=== PATIENT | female | born 1955 | race Hispanic/Latino ===

== ENCOUNTER 2018-07-16 08:10 | Emergency (ER) | payer MEDICARE, MEDICAID ==
[2018-07-16 08:36] VITALS: BP 136/91
--- NOTE | 2018-07-16 08:58 | Emergency Department Report ---
Minor Respiratory - HPI Chief Complaint: Upper Respiratory Infection Stated Complaint: SINUS INFECTION Time Seen by Provider: 07/16/18 08:41 Duration: 5 Days Pain Location: Facial, Chest Severity: mild Minor Respiratory: Yes Rhinorrhea (pt feels sinus congestion without pain on palpation), Yes Able to Tolerate Fluids, Yes Cough (non productive), No Sore Throat, No Ear Pain, No Sick Contacts, No Hemoptysis, No Chest Pain, No Shortness of Breath, No Fever ED Review of Systems ROS: Stated complaint: SINUS INFECTION Other details as noted in HPI Comment: All other systems reviewed and negative ED Past Medical Hx - Past Medical History Hx Hypertension: Yes Hx Diabetes: Yes Hx GERD: Yes Hx Asthma: Yes Additional medical history: Schizophrenia - Surgical History Hx Appendectomy: Yes - Social History Smoking Status: Never Smoker Substance Use Type: None - Medications Home Medications: Home Medications Medication Instructions Recorded Confirmed Last Taken Type ALBUTEROL Inhaler (OR & NICU) 2 puff IH QID PRN #1 inhalation 07/16/18 Unknown Rx [ProAir HFA Inhaler] Azithromycin [Zithromax Z-ORIN] 250 mg PO DAILY #6 tablet 07/16/18 Unknown Rx Benzonatate [Tessalon Perles] 100 mg PO Q8HR #10 capsule 07/16/18 Unknown Rx Pantoprazole [Protonix TAB] 40 mg PO QDAY #30 tablet. 07/16/18 Unknown Rx amLODIPine [Norvasc] 10 mg PO DAILY #30 tab 07/16/18 Unknown Rx Minor Respiratory Exam - Exam General: Vital signs noted. No distress. Alert and acting appropriately. HEENT: Yes Moist Mucous Membranes, No Pharyngeal Erythema, No Pharyngeal Exudates, No Rhinorrhea, No Conjuctival Injection, No Frontal Tenderness, No Maxillary Tenderness Ear: Neither TM Bulge, Neither TM Erythema, Neither EAC Pain, Neither EAC Discharge Neck: Yes Supple, No Adenopathy Lungs: Yes Good Air Exchange, Yes Cough, No Wheezes, No Ronchi, No Stridor, No Labored Respirations, No Retractions, No Use of Accessory Muscles, No Other Abnormal Lung Sounds Heart: Yes Regular, No Murmur Abdomen: Yes Normal Bowel Sounds, No Tenderness, No Peritoneal Signs Skin: No Rash, No Edema Neurologic: Alert and oriented, no deficits. Musculoskeletal: Unremarkable. ED Course Vital Signs 07/16/18 08:33 Temperature 97.8 F Pulse Rate 103 H Respiratory 18 Rate Blood Pressure 136/91 O2 Sat by Pulse 98 Oximetry ED Medical Decision Making - Medical Decision Making Patient's O2 saturation and lung exam are within normal limits. Did not feels though chest x-ray or neb treatment is necessary at this time. Patient excluding and requesting a breathing treatment. Patient has prescription for albuterol embryo. She states she is not sure these medications are old. Prescription for albuterol be given. The [facility] has multiple doses left according to the meter. Patient has Flonase and her bag of medications but has not been taking it she's been instructed to start this medication for her sinus congestion. Patient started on Tessalon as well for cough. Because of the hip patient's history of diabetes and asthma and a duration of her symptoms patient was started on antibiotics. Critical care attestation.: If time is entered above; I have spent that time in minutes in the direct care of this critically ill patient, excluding procedure time. ED Disposition Clinical Impression: Upper respiratory infection Qualifiers: URI type: unspecified URI Qualified Code(s): J06.9 - Acute upper respiratory infection, unspecified Disposition: DC-01 TO HOME OR SELFCARE Is pt being admited?: No Does the pt Need Aspirin: No Condition: Stable Instructions: Upper Respiratory Infection (ED) Additional Instructions: Prescription for albuterol inhalers been given medication for albuterol has run out. Please continue to take embryo. Please take the Flonase spray in the mitchel Y box. Please use 2 sprays daily. Your other medications have been given as prescriptions. Referrals: PRIMARY CARE, [Primary Care Provider] - 3-5 Days Time of Disposition: 08:59
== END 2018-07-16 09:08 | disposition home or self-care (01) ==
LOC: ED 08:10
DX: J06.9 Acute upper respiratory infection, unspecified (principal); I10 Essential (primary) hypertension; E11.9 Type 2 diabetes mellitus without complications; K21.9 Gastro-esophageal reflux disease without esophagitis; J45.909 Unspecified asthma, uncomplicated; F20.9 Schizophrenia, unspecified
CPT/HCPCS: 99281

== ENCOUNTER 2020-03-01 12:46 | Emergency (ER) | payer MEDICARE, MEDICAID ==
[2020-03-01 14:37] LABS: Basophils % (Auto) 0.4 % (0.0-1.8); Eosinophils # (Auto) 0.1 K/mm3 (0.0-0.4); Eosinophils % (Auto) 0.8 % (0.0-4.3); Lymphocytes # (Auto) 1.8 K/mm3 (1.2-5.4); Lymphocytes % (Auto) 16.2 % (13.4-35.0); Mean Corpuscular HGB Conc 29 % (30-34); Monocytes # (Auto) 0.7 K/mm3 (0.0-0.8); Monocytes % (Auto) 6.8 % (0.0-7.3); Platelet Count 384 K/mm3 (140-440); Red Blood Count 4.46 M/mm3 (3.65-5.03); Red Cell Distribution Width 19.5 % (13.2-15.2)
--- NOTE | 2020-03-01 14:40 | Event Note ---
ED Screening Note Date of service: 03/01/20 Time: 14:36 ED Screening Note: Patient complains of recurrent falls for the past 3 days Admits to headache and feeling off balance States left arm pain This initial assessment/diagnostic orders/clinical plan/treatment(s) is/are subject to change based on patients health status, clinical progression and re- assessment by fellow clinical providers in the ED. Further treatment and workup at subsequent clinical providers discretion. Patient/guardian urged not to elope from the ED as their condition may be serious if not clinically assessed and managed. Initial orders include: CT head EKG Chest x-ray Labs
[2020-03-01 14:42] LABS: Hematocrit 27.4 % (30.3-42.9); Mean Corpuscular Volume 62 fl (79-97)
[2020-03-01 15:04] LABS: Alanine Aminotransferase 6 units/L (7-56); Albumin 3.8 g/dL (3.9-5); BUN/Creatinine Ratio 13; Blood Urea Nitrogen 13 mg/dL (7-17); Hemolysis Index 6
--- NOTE | 2020-03-01 15:17 | XRay Report ---
XR chest 1V ap INDICATION / CLINICAL INFORMATION: DIZZINESS/recurrent falls/PAIN AFTER FALL. COMPARISON: None available. FINDINGS: SUPPORT DEVICES: None. HEART / MEDIASTINUM: No significant abnormality. LUNGS / PLEURA: Lungs are clear. Costophrenic sulci are sharp. No pneumothorax. ADDITIONAL FINDINGS: No significant additional findings. IMPRESSION: 1. No acute findings. Signer Name: Isiah Cid MD Signed: 03/01/2020 3:12 PM Workstation Name: [id number]
--- NOTE | 2020-03-01 15:18 | XRay Report ---
XR humerus 2+V LT INDICATION / CLINICAL INFORMATION: Pain and bruising after fall. COMPARISON: None available. FINDINGS: No acute fracture. Normal alignment. Joint spaces are preserved. No destructive osseous lesion or s uspicious periosteal reaction. Impression: 1.No acute fracture. Signer Name: Isiah Cid MD Signed: 03/01/2020 3:13 PM Workstation Name: [id number]
--- NOTE | 2020-03-01 15:34 | Cat Scan Report ---
CT head/brain wo con INDICATION / CLINICAL INFORMATION: 64 years Female; recurrent falls, balance issues, headache. TECHNIQUE: Routine CT head without contrast. All CT scans at this location are performed using CT dos e reduction for ALARA by means of automated exposure control. COMPARISON: None. FINDINGS: BRAIN / INTRACRANIAL CONTENTS: There is mild cerebral white matter disease most consistent with micro vascular angiopathy. There is mild cerebral atrophy with associated prominence of the ventricular sys tem. There is hyperostosis from talus interna with associated beam hardening. However, there is no de finitive CT evidence of acute intracranial hemorrhage or significant mass effect. ORBITS: No significant abnormality of visualized orbits. SINUSES / MASTOIDS: There is focal opacification involving posterior right ethmoid sinus. CRANIOCERVICAL JUNCTION: No significant abnormality. ADDITIONAL FINDINGS: None. IMPRESSION: 1. There is mild microvascular angiopathy and cerebral atrophy without CT evidence of acute intracran ial hemorrhage. Signer Name: Peterson Flor MD Signed: 03/01/2020 3:30 PM Workstation Name: [id number]
[2020-03-01 22:57] LABS: Bilirubin,Urine NEG (Negative); Blood,Urine SM (Negative); Color,Urine Yellow (Yellow); Mucus,Urine FEW /HPF; Protein,Urine <15 mg/dL mg/dL (Negative); Urobilinogen,Urine < 2.0 mg/dL (<2.0)
[2020-03-01 23:00] LABS: Bacteria,Urine 3+ /HPF (Negative)
--- NOTE | 2020-03-01 23:12 | Emergency Department Report ---
ED General Adult HPI - General Chief complaint: Dizziness Stated complaint: UNSTEADY GAIT Time Seen by Provider: 03/01/20 14:35 Source: patient, EMS Mode of arrival: Stretcher Limitations: No Limitations - History of Present Illness Initial comments: CC: "I have not been walking too good." HPI: This is a 64-year-old female with history of asthma, diabetes mellitus, hypertension, paranoid schizophrenia ADHD who presents with difficulty with walking for the past 1-1/2 weeks. She stated that she bent over the toilet and fell. She has bruised to her left upper arm. She had a small cut on her lower chin. She denies trouble with speech. She denies paralysis. Denies numbness. She feels as if she needs an MRI. She has recently been evaluated by her PCP. Her PCP has referred her to a machine silver stripper. -: Gradual, week(s) (1.5 weeks) Severity scale (0 -10): 0 Consistency: constant Improves with: none Worsens with: none Associated Symptoms: headaches - Related Data Previous Rx's Medication Instructions Recorded Last Taken Type Albuterol Mdi (or & Nicu Only) 2 puff IH QID PRN #1 inhalation 07/16/18 Unknown Rx [ProAir HFA Inhaler] Azithromycin [Zithromax Z-ORIN] 250 mg PO DAILY #6 tablet 07/16/18 Unknown Rx Benzonatate [Tessalon Perles] 100 mg PO Q8HR #10 capsule 07/16/18 Unknown Rx Pantoprazole [Protonix TAB] 40 mg PO QDAY #30 tablet. 07/16/18 Unknown Rx amLODIPine [Norvasc] 10 mg PO DAILY #30 tab 07/16/18 Unknown Rx cephALEXin [Keflex] 500 mg PO Q8HR 7 Days #21 cap 03/01/20 Unknown Rx Allergies Allergy/AdvReac Type Severity Reaction Status Date / Time No Known Allergies Allergy Unverified 06/11/18 10:00 ED Review of Systems ROS: Stated complaint: UNSTEADY GAIT Other details as noted in HPI Comment: All other systems reviewed and negative Constitutional: denies: fever, malaise Respiratory: denies: cough Cardiovascular: denies: chest pain Gastrointestinal: denies: abdominal pain, nausea, vomiting Neurological: headache, confusion, abnormal gait. denies: numbness, paresthesias ED Past Medical Hx - Past Medical History Previous Medical History?: Yes Hx Hypertension: Yes Hx Diabetes: Yes Hx GERD: Yes Hx Asthma: Yes Additional medical history: Schizophrenia - Surgical History Past Surgical History?: Yes Hx Appendectomy: Yes - Family History Family history: CAD/AK - Social History Smoking Status: Never Smoker Substance Use Type: None - Medications Home Medications: Home Medications Medication Instructions Recorded Confirmed Last Taken Type Albuterol Mdi (or & Nicu Only) 2 puff IH QID PRN #1 inhalation 07/16/18 Unknown Rx [ProAir HFA Inhaler] Azithromycin [Zithromax Z-ORIN] 250 mg PO DAILY #6 tablet 07/16/18 Unknown Rx Benzonatate [Tessalon Perles] 100 mg PO Q8HR #10 capsule 07/16/18 Unknown Rx Pantoprazole [Protonix TAB] 40 mg PO QDAY #30 tablet. 07/16/18 Unknown Rx amLODIPine [Norvasc] 10 mg PO DAILY #30 tab 07/16/18 Unknown Rx cephALEXin [Keflex] 500 mg PO Q8HR 7 Days #21 cap 03/01/20 Unknown Rx ED Physical Exam - General Limitations: No Limitations General appearance: alert, in no apparent distress, other (Normal gait patient able to get out of stretcher without assistance. Ambulates without assistance. Steady normal gait.) - Head Head exam: Present: atraumatic, normocephalic - Eye Eye exam: Present: normal appearance - ENT ENT exam: Present: mucous membranes moist - Neck Neck exam: Present: normal inspection, full ROM - Respiratory Respiratory exam: Present: normal lung sounds bilaterally. Absent: respiratory distress, wheezes, rales, rhonchi - Cardiovascular Cardiovascular Exam: Present: regular rate, normal rhythm, normal heart sounds. Absent: systolic murmur, diastolic murmur, rubs, gallop - GI/Abdominal GI/Abdominal exam: Present: soft, normal bowel sounds. Absent: distended, tenderness, guarding, rebound - Extremities Exam Extremities exam: Present: normal inspection - Back Exam Back exam: Present: normal inspection - Neurological Exam Neurological exam: Present: alert, oriented X3 - Expanded Neurological Exam Expanded Patient oriented to: Present: person, place, time Speech: Present: fluid speech Cranial nerves: EOM's Intact: Normal Cerebellar function: Finger to Nose: Normal Upper motor neuron: Agus Neglect: Normal Sensory exam: Upper Extremity Light Touch: Normal Motor strength exam: RUE: 5, LUE: 5, RLE: 5, LLE: 5 Best Eye Response ([place]): (4) open spontaneously Best Motor Response (Nini): (6) obeys commands Best Verbal Response ([place]): (5) oriented Nini Total: 15 - Psychiatric Psychiatric exam: Present: normal affect, normal mood - Skin Skin exam: Present: warm, dry, intact, normal color. Absent: rash ED Course Vital Signs 03/01/20 03/01/20 12:51 22:28 Temperature 98.2 F 98.2 F Pulse Rate 120 H 98 H Respiratory 16 16 Rate Blood Pressure 124/86 Blood Pressure 161/83 [Right] O2 Sat by Pulse 96 100 Oximetry ED Medical Decision Making - Lab Data Result diagrams: 03/01/20 14:08 03/01/20 14:08 Laboratory Results - last 24 hr 03/01/20 03/01/20 03/01/20 14:08 14:08 Unknown WBC 11.0 RBC 4.46 Hgb 8.0 L Hct 27.4 L MCV 62 L MCH 18 L MCHC 29 L RDW 19.5 H Plt Count 384 Lymph % (Auto) 16.2 [place] % (Auto) 6.8 Eos % (Auto) 0.8 Baso % (Auto) 0.4 Lymph # 1.8 [place] # 0.7 Eos # 0.1 Baso # 0.0 Seg Neutrophils % 75.8 H Seg Neutrophils # 8.3 H Sodium 142 Potassium 4.5 Chloride 106.2 Carbon Dioxide 23 Anion Gap 17 BUN 13 Creatinine 1.0 Estimated GFR 56 BUN/Creatinine Ratio 13 Glucose 101 H Calcium 11.0 H Total Bilirubin < 0.20 AST 14 ALT 6 L Alkaline Phosphatase 104 Troponin T < 0.010 Total Protein 7.2 Albumin 3.8 L Albumin/Globulin Ratio 1.1 Urine Color Yellow Urine Turbidity Cloudy Urine pH 5.0 Ur Specific [place] 1.016 Urine Protein <15 mg/dl Urine Glucose (UA) Neg Urine Ketones Neg Urine Blood Sm Urine Nitrite Neg Urine Bilirubin Neg Urine Urobilinogen < 2.0 Ur Leukocyte Esterase Lg Urine WBC (Auto) 70.0 H Urine RBC (Auto) 38.0 U Epithel Cells (Auto) 2.0 Urine Bacteria (Auto) 3+ Urine Mucus Few - Medical Decision Making This is a 64-year-old female with a history of hypertension, diabetes mellitus, asthma This of hernia who presents with recurrent falls due to a feeling of being unsteady. She does "I do not know what is wrong with my legs". Patient has normal gait. She has normal neuro exam. No indication of CVA or significant spinal cord disease. I have referred her to neurologist. Work-up does reveal mild anemia as well as UTI. I prescribed cephalexin. Critical care attestation.: If time is entered above; I have spent that time in minutes in the direct care of this critically ill patient, excluding procedure time. ED Disposition Clinical Impression: Recurrent falls, Balance problem, UTI (urinary tract infection), Anemia Disposition: DC- TO HOME OR SELFCARE Is pt being admited?: No Does the pt Need Aspirin: No Condition: Stable Instructions: Anemia (ED), Urinary Tract Infection in Women (ED) Prescriptions: cephALEXin [Keflex] 500 mg PO Q8HR 7 Days #21 cap Referrals: ALFREDO GALEANO MD [Primary Care Provider] - 3-5 Days MANGO DOMINGO MD [Staff Physician] - 3-5 Days
[2020-03-01 23:25] VITALS: BP 155/82
== END 2020-03-01 23:25 | disposition home or self-care (01) ==
LOC: ED 12:46
DX: N39.0 Urinary tract infection, site not specified (principal); D64.9 Anemia, unspecified; R26.2 Difficulty in walking, not elsewhere classified; R51 Headache; R42 Dizziness and giddiness; I10 Essential (primary) hypertension; E11.9 Type 2 diabetes mellitus without complications; K21.9 Gastro-esophageal reflux disease without esophagitis; J45.909 Unspecified asthma, uncomplicated; Z91.81 History of falling; Z90.49 Acquired absence of other specified parts of digestive tract; Z79.2 Long term (current) use of antibiotics; Z79.899 Other long term (current) drug therapy
CPT/HCPCS: 36415; 70450; 71045; 80053; 81001; 84484; 85025; 87086; 93005